=== PATIENT | male | born 1990 | race Caucasian/White ===

== ENCOUNTER 2023-11-10 14:55 | Outpatient (CLI) | payer BC, SELFPAY ==
--- NOTE | 2023-11-10 14:45 | RT.EKG_ITS ---
APPROVED REPORT Exam: Resting ECG Reason for Exam: SYNCOPE Patient Location: O HR:77 bpm ECG Measurements Heart Rate 77 AXIS NE 170 P 37 QRSd 87 QRS 58 QT 363 T 39 QTc 411 Conclusion Sinus rhythm...normal P axis, V-rate 50- 99 Normal Electrocardiogram
== END 2023-11-10 14:56 | disposition home or self-care (01) ==
LOC: CARDOPNVT 14:55
PROVIDERS: PCP Nurse Practitioner Family; Visit Provider Nurse Practitioner Family
DX: R55 Syncope and collapse (principal)
CPT/HCPCS: 93005; 93010

== ENCOUNTER 2023-12-04 08:04 | Outpatient (CLI) | payer BC, SELFPAY ==
--- NOTE | 2023-12-04 08:47 | W.CARDEVENT ---
Date of service: 12/04/23 Time of Service: 08:47 Cardiac Event Recorder Referring Provider:: Pippa Mena Indications:: Syncope Cardiac Event Note: This is a cardiac event monitor. Patient was monitored for 12 days and 15 hours Rhythm throughout was sinus. Average heart rate was 81. Minimum was 46, maximum 174 There were very rare isolated atrial and ventricular ectopic beats Symptoms were reported which correlated with sinus rhythm rates generally 70-90
== END 2023-12-04 08:05 | disposition home or self-care (01) ==
LOC: CARDOPNVT 08:04
PROVIDERS: PCP Nurse Practitioner Family; Visit Provider Internal Medicine Cardiovascular Disease
DX: R55 Syncope and collapse (principal)

== ENCOUNTER 2025-01-06 12:50 | Outpatient (REF) | payer BC, SELFPAY ==
[2025-01-06 16:13] LABS: Anion Gap 9.3 mmol/L (3-11); BUN 13 mg/dL (7-18); CO2 28.7 mmol/L (21.0-32.0); Calcium 9.7 mg/dL (8.5-10.1); Calculated LDL 138 mg/dL (<100); Chloride 103 mmol/L (98-107); Cholesterol 214 mg/dL (<200); Estimated GFR 125.55 (mL/min/1.73m2); Glucose 89 mg/dL (74-106); HDL Cholesterol 53 mg/dL (>or=40); Potassium 3.9 mmol/L (3.5-5.1); Sodium 141 mmol/L (136-145); Triglyceride 115 mg/dL (<150)
[2025-01-06 23:41] LABS: HIV-1/2 Ag & Ab Screen Negative (Negative); Hepatitis C Ab w Rflx HCV PCR Negative (Negative)
== END 2025-01-06 12:51 | disposition home or self-care (01) ==
LOC: NCHCN 12:50
PROVIDERS: PCP Nurse Practitioner Family; Visit Provider Nurse Practitioner Family
DX: Z00.00 Encounter for general adult medical examination without abnormal findings (principal); Z11.4 Encounter for screening for human immunodeficiency virus [HIV]; Z13.220 Encounter for screening for lipoid disorders; Z11.59 Encounter for screening for other viral diseases; Z13.1 Encounter for screening for diabetes mellitus
CPT/HCPCS: 80048; 80061; 86803; 87389